=== PATIENT | female | born 1945 | race Caucasian/White ===

== ENCOUNTER 2017-02-01 17:00 | Emergency (ER) | payer MEDICARE, BC ==
[2017-02-01 17:11] VITALS: RESP 18
--- NOTE | 2017-02-01 17:38 | ED ---
General Adult HPI - General Chief complaint: Abdominal Pain Stated complaint: leak in feeding tube Time Seen by Provider: 02/01/17 17:16 Source: patient, RN notes reviewed Mode of arrival: ambulatory Limitations: no limitations - History of Present Illness Initial comments: Patient is a 71-year-old female presents to the emergency room for evaluation of J-tube draining. Patient states she had J-tube placed on 10/21/2016. Patient states she is currently being treated for stomach cancer. Patient states she's following up with Dr. Sandoval. Patient states usually follows up at [facility]. Patient states the J-tube began draining on Tuesday. Patient states the draining would not subside. Patient states she is now developed a rash around the area due to skin irritation. Patient states last time it began draining the balloon on the inside deflated. Patient states she thinks the balloon needs to be reinflated. - Related Data Allergies Allergy/AdvReac Type Severity Reaction Status Date / Time No Known Allergies Allergy Verified 02/01/17 17:11 Review of Systems ROS Statement: Those systems with pertinent positive or pertinent negative responses have been documented in the HPI. ROS Other: All systems not noted in ROS Statement are negative. Past Medical History Past Medical History: Coronary Artery Disease (CAD), Cancer, Hypertension Additional Past Medical History / Comment(s): stomach cancer History of Any Multi-Drug Resistant Organisms: None Reported Past Surgical History: Bowel Resection, Heart Catheterization With Stent Past Psychological History: No Psychological Hx Reported Smoking Status: Never smoker Past Alcohol Use History: None Reported Past Drug Use History: None Reported General Exam - General Exam Comments Initial Comments: Sitting in exam room, no acute distress. Limitations: no limitations General appearance: alert, in no apparent distress Head exam: Present: atraumatic, normocephalic, normal inspection Eye exam: Present: normal appearance ENT exam: Present: normal exam Neck exam: Present: normal inspection Respiratory exam: Present: normal lung sounds bilaterally. Absent: respiratory distress Cardiovascular Exam: Present: regular rate, normal rhythm, normal heart sounds GI/Abdominal exam: Present: other (J-tube with yellow bile leakage over the abdomen.) Extremities exam: Present: normal inspection Back exam: Present: normal inspection Neurological exam: Present: alert, oriented X3, CN II-XII intact, normal gait Psychiatric exam: Present: normal affect, normal mood Skin exam: Present: warm, dry, intact, normal color Course Vital Signs 02/01/17 02/01/17 17:09 18:13 Temperature 97.9 F 97.8 F Pulse Rate 78 81 Respiratory 18 18 Rate Blood Pressure 118/62 128/70 O2 Sat by Pulse 99 98 Oximetry Medical Decision Making - Medical Decision Making Patient is a 71-year-old female presents emergency room for evaluation of G- tube leakage. The balloon in the J-tube appears to be deflated. Dr. Stone and I did make an attempt to reinflate the balloon but were unsuccessful. Advised patient to follow up with the physician who placed in the J-tube at [facility]. Patient may need a for replacement of the J-tube. Area was dressed with 4 x 4 gauze. Patient's states he will take patient to [facility] tomorrow morning. Return parameters discussed. Disposition Clinical Impression: Jejunostomy tube leak Disposition: HOME SELF-CARE Condition: Good Instructions: How to Use and Care for Your PEG Tube (ED) Additional Instructions: Please follow up at [facility] for possible replacement of J-tube. If any new symptom arises or symptoms worsen, return to ER as soon as possible. Referrals: Jax Mehta MD [Primary Care Provider] - 1-2 days Time of Disposition: 18:03
[2017-02-01 18:13] VITALS: BP 128/70; PULSE 81; TEMP 97.8
== END 2017-02-01 18:13 | disposition home or self-care (01) ==
LOC: EC 17:00
DX: K94.13 Enterostomy malfunction (principal)
CPT/HCPCS: 99283